=== PATIENT | male | born 1995 | race Caucasian/White ===

== ENCOUNTER 2019-04-02 12:06 | Emergency (ER) | payer MEDICAID ==
[~2019-04-02] VITALS: Wt 90.0 kg
[~2019-04-02 12:06] MED LIST: ALBU18HF INHALATION; LORA1TAB PO
[2019-04-02 13:30] VITALS: BP 144/81; PULSE 91; RESP 25
[2019-04-02] MEDS ORDERED: LORAZEPAM 1 MG TAB PO ONE (14:30)
== END 2019-04-02 15:28 | disposition home or self-care (01) ==
LOC: FTE 12:06
DX: F41.0 Panic disorder [episodic paroxysmal anxiety] (principal)
CPT/HCPCS: 71045; Z7502; Z7610